=== PATIENT | male | born 1980 ===

== ENCOUNTER 2016-08-20 06:26 | Day surgery (SDC) | payer MEDICAID ==
[2016-08-15 10:23] VITALS: BMI 25.0
[2016-08-20] MEDS ORDERED: Lidocaine 2% Jelly (Uro-Jet) ONE (07:20)
[2016-08-20] MEDS: cefTRIAXone IV 1 gm in Dextros 50 ML IVPB ONE ×2 (07:26→08:10)
[2016-08-20] MEDS ORDERED: Lactated Ringer's 1,000 ML IV ONE ×3 (07:26→08:34)
[2016-08-20] MEDS ORDERED: Midazolam 2 MG/2 ML VIAL ONE (07:53)
[2016-08-20] MEDS ORDERED: Propofol 10 mg/ml Inj (20 ML) ONE (07:53)
[2016-08-20] MEDS ORDERED: Lidocaine Hydrochloride 5 ML INJ ONE (07:54)
[2016-08-20] MEDS ORDERED: Sodium Chloride 0.9% 500 ML IV ONE (08:05)
[2016-08-20] MEDS ORDERED: Lactated Ringer's 500 ML IV ONE (08:05)
[2016-08-20] MEDS: Iohexol 240 (50 ml) ONE ×2 (08:12→08:17)
[2016-08-20] MEDS ORDERED: ePHEDrine 50 mg/ml Inj ONE (08:29)
[2016-08-20] MEDS ORDERED: HYDROmorphone 0.5 mg/0.5 ml ISec IVP PRN (08:47)
--- NOTE | 2016-08-20 09:30 | PCM.SURG1 ---
Surgeon's Initial Post Op Note - Surgeon's Notes Surgeon: Omega BRIGHT Regional Safety Manager: NONE Type of Anesthesia: General LMA Pre-Operative Diagnosis: BILAT HYDRONEPHROSIS Operative Findings: SAME Post-Operative Diagnosis: SAME Operation Performed: URETHRAL DILATION. CYSTO, CYSTOGRAM. SINUSOGRAM. BILAT STENT REMOVAL. BILAT RTG PYELOGRAM,. BILAT STENT INSERTION Specimen/Specimens Removed: URINE Estimated Blood Loss: EBL {In ML}: 0 Blood Products Given: N/A Post-Op Condition: Good Date of Surgery/Procedure: 08/20/16 Time of Surgery/Procedure: 09:00
--- NOTE | 2016-08-20 10:30 | RAD ---
HISTORY: Hydronephrosis. Two AP supine views of the abdomen performed COMPARISON: Comparison made prior plain film radiographs abdomen 07/11/2015. FINDINGS: BOWEL: Normal. No obstruction. No free air. BONES: Normal. OTHER FINDINGS: There are bilateral in situ ureteral stents. . . There appears to be calcifications of surrounding the pigtail component of the proximal left ureteral stent likely representing nephrolithiasis. Questionable calcification adjacent and superior to the proximal pigtail component right renal stent. Metallic springlike density seen overlying the lateral aspect right upper abdomen Film labeled 2. Reveals a partial opacification left renal pelvis and a opacification right renal pelvis and collecting system. There may also be some opacification proximal left ureter. Partial opacification urinary bladder. Apparent in situ Black balloon IMPRESSION: In situ bilateral renal stents. Probable nephrolithiasis. Followup CT scan could be performed further evaluation
[2016-08-20 11:13] VITALS: BP 121/80; PULSE 69; RESP 18; TEMP 97.1; O2SAT 99
--- NOTE | 2016-08-21 09:10 | OP ---
PROCEDURE DATE: 08/20/2016 PREOPERATIVE DIAGNOSES: Hydronephrosis. History of renal tuberculosis. POSTOPERATIVE DIAGNOSES: Hydronephrosis. History of renal tuberculosis. PROCEDURES: Cystoscopy. Bilateral stent removal. Bilateral retrograde pyelogram. Bilateral stent insertion. Cystogram. Sinogram. The procedure was performed under video endoscopic control as well as under fluoroscopic control. DESCRIPTION OF PROCEDURE: The patient was placed in lithotomy position. The patient received periop erative antibiotics. Anesthesia was provided by the anesthesiologist. A 22-Mexican cystoscope sheath was introduced under direct vision. Urethra, prostate and bladder were inspected. There was noted to be a urethral stricture, mild urethral stricture of the bulbous urethra. This was dilated by passage of the cystoscope sheath. The prostate was inspected. There was mild inflammation of the prostatic urethra. The prostatic ure thra was 2.5 cm in length and subocclusive. The bladder was inspected. There was no bladder tumor. There was no bladder stone. There was an ap parent extension of the mucosa of the cephalad aspect of the bladder adjacent to the dome. This area was inspected. Iodinated contrast dye was instilled in this area. This was a blind ending tract ap proximately 2 cm in length. Cystogram was performed. Iodinated contrast dye was instilled. Views of the bladder were obtained. The cystogram demonstrated normal bladder contour. Bilateral ureteral stents were identified. There was moderate bladder trabeculation. There was no s tone within the bladder. There was no tumor within the bladder. The right ureteral stent was grasped with rigid grasping forceps and delivered through the cystoscope sheath to the distal end of the sheath. A 0.038 inch guidewire was inserted into the ureteral stent . The stent was removed. An open-ended catheter was inserted over the guidewire. Iodinated contrast dye was instilled. The retrograde pyelogram demonstrated moderate to marked hydroureteronephrosis. The guidewire was reinserted. A new 6-Mexican multilength stent was inserted over the guidewire. Pro per stent position was confirmed with fluoroscopy and endoscopy. Attention was then turned towards the left side. The stent was grasped with rigid grasping forceps a nd delivered to the distal end of the cystoscope sheath. A 0.038 inch guidewire was inserted into the stent. The stent was removed. An open-ended catheter was inserted over this guidewire. Iodinated contrast dye was instilled. There was noted to be an atrophic kidney with an upper pole hydronephrotic segment. The guidewire was reinserted. At first, the guidewire could not be reintroduced into the hydronephro tic hannah. Multiple attempts were performed using various open-ended catheters as well as Berenstein catheters. The guidewire was able to be negotiated with use of a Berenstein catheter as well as with an angle t ip Glidewire. The guidewire was coiled into the upper pole hydronephrotic hannah. A 6-Mexican multi-length stent was inserted over the guidewire. Proper stent position was confirmed with fluoroscopy and endoscopy. T he guidewire was removed. The bladder was reinspected and confirmed the above findings. Cystoscope and sheath were removed. The 16-Mexican Black catheter was inserted. Bladder drainage was clear. Rectal examination revealed no abnormal pelvic mass, fixation or induration. Prostate was approximat zehra 15 grams in size. Prostate was supple and flat without fixation, induration, or nodularity. The patient tolerated the procedure without complication. Lucero Michael MD cc: [phone] TT: 08/21/2016 09:09:37 vt
--- NOTE | 2016-08-21 13:04 | RAD ---
PROCEDURE: Fluoroscopy up to 1 hr. HISTORY: HYDRONEPHROSIS COMPARISON: None TECHNIQUE: Standard protocol for this study/examination. FINDINGS: Submitted images from the current procedure: Greater than 10.0. IMPRESSION: Less than 1 hr fluoroscopic time utilized during performance of the procedure.
== END 2016-08-20 11:15 | disposition home or self-care (01) ==
LOC: C.SDS 06:26
PROVIDERS: ATTEND Urology
DX: N13.30 Unspecified hydronephrosis (principal)
CPT/HCPCS: 52005; 52332; 74020; 76000; 87086; 88104; J0696; J7040; J7120; Q9966

== ENCOUNTER 2018-04-07 05:49 | Day surgery (SDC) | payer MEDICAID, OTHER ==
[2016-08-15 10:23] VITALS: BMI 25.0
[2018-04-07] MEDS ORDERED: Gentamicin 80 mg in 0.9% NS 0 MG/0 ML BAG IVPB ONE (07:33)
[2018-04-07] MEDS ORDERED: Iohexol 240 (50 ml) ONE (07:33)
[2018-04-07] MEDS ORDERED: cefTRIAXone 1 gm 1 GM/100 ML BAG IVPB ONE (07:33)
[2018-04-07] MEDS ORDERED: Midazolam 2 MG/2 ML VIAL ONE (07:45)
[2018-04-07] MEDS ORDERED: Propofol 10 mg/ml Inj (20 ML) ONE (07:45)
[2018-04-07] MEDS ORDERED: ePHEDrine 50 mg/ml Inj ONE (08:19)
[2018-04-07] MEDS ORDERED: HYDROmorphone 0.5 mg/0.5 ml ISec IVP PRN (08:31)
--- NOTE | 2018-04-07 08:43 | PCM.SURG1 ---
Surgeon's Initial Post Op Note - Surgeon's Notes Surgeon: Omega Michael Technician Automatic: none Type of Anesthesia: General LMA Pre-Operative Diagnosis: Bilat hydronephrosis. Hx of TB. Urethral stricture Operative Findings: same Post-Operative Diagnosis: same Operation Performed: cysto. urethral dilation. Bilat stent removal, RTG pyelogram, stent insertion. EUA Specimen/Specimens Removed: urine Estimated Blood Loss: EBL {In ML}: 0 Blood Products Given: N/A Date of Surgery/Procedure: 04/07/18 Time of Surgery/Procedure: 08:30
[2018-04-07 09:02] VITALS: O2SAT 100
[2018-04-07 09:52] LABS: SQUAMOUS EPITHIAL < 1 /hpf (0-5); URINE BACTERIA RARE (<OCC); URINE BILIRUBIN NEGATIVE (NEGATIVE); URINE BLOOD 2+ (NEGATIVE); URINE CLARITY Clear (Clear); URINE COLOR Colorless (YELLOW); URINE GLUCOSE (UA) NORMAL (Normal); URINE LEUKOCYTE ESTERASE TRACE Leu/uL (Negative); URINE PROTEIN NEGATIVE (NEGATIVE); URINE UROBILINOGEN NORMAL mg/dL (0.2-1.0)
[2018-04-07 10:03] VITALS: BP 127/86; PULSE 67; RESP 18; TEMP 97
--- NOTE | 2018-04-07 13:56 | RAD ---
Date of service: 04/07/2018 HISTORY: MEREDITH URETERAL STENT EXCHANGE COMPARISON: Abdominal radiograph performed 08/20/16 FINDINGS: Bilateral ureteral stents. Coarse calcifications/cluster of calcifications noted within the right upper quadrant measuring approximately 9 x 16 mm in span, left upper quadrant spanning approximately 1.9 x 1.7 cm, as well as additional focus of calcification likely residing within the left lower pole kidney measuring approximately 7 mm. Nonobstructive bowel gas pattern. Mild constipation. No acute osseous abnormality is detected. IMPRESSION: Bilateral ureteral stents. Evidence of probable bilateral nephrolithiasis. Correlation with CT suggested.
--- NOTE | 2018-04-07 15:45 | RAD ---
Date of service: 04/07/2018 PROCEDURE: Intraoperative Fluoroscopy. HISTORY: MEREDITH URETERAL STENT EXCHANGE FINDINGS: Fluoroscopic assistance was provided for bilateral retrograde and stent exchange. Please refer to the operative report from Dr. BRIGHT GREENLEAF. Total fluoroscopic time (continuous mode) utilized during the procedure 28.4 seconds. Dose report: DLP 1.89 (mGy/m2)
--- NOTE | 2018-04-10 03:53 | OP ---
PROCEDURE DATE: 04/07/2018 PREOPERATIVE DIAGNOSES: Bilateral hydronephrosis. Urethral stricture. History of renal tuberculosis. POSTOPERATIVE DIAGNOSES: Bilateral hydronephrosis. Urethral stricture. History of renal tuberculosis. Atrophic left kidney. Right hydronephrosis. Benign prostatic hyperplasia. PROCEDURES: Cystoscopy. Bilateral ureteral stent removal. Bilateral retrograde pyelogram. Bilateral stent insertion. Urethral dilation. Black catheter insertion. Exam under anesthesia. PROCEDURE FOLLOWS: The patient was placed in lithotomy position. The genitalia prepped and draped sterilely. Perioperative antibiotics were administered. A 22-Argentine cystoscope sheath was introduced under direct vision. There was a mild stricture of the bulbous urethra. The stricture was dilated by passage of cystoscope sheath. The bladder and prostate were inspected. FINDINGS: There was no bladder tumor. There was encrusted ureteral stents bilaterally. There was mild inflammation of bladder mucosa. The ureteral orifices were identified bilaterally and were noted to be somewhat dilated. The prostatic urethra was occlusive secondary to lateral lobe hypertrophy. The right ureteral stent was grasped with rigid grasping forceps and delivered through the cystoscope sheath. The 0.35-inch guidewire was inserted into the right ureteral stent and passed up to level of the kidney. An open-ended catheter inserted over the guidewire. Retrograde ureteropyelogram was performed. There was moderate to marked hydroureteronephrosis. The pullout ureterogram demonstrated dilated ureter at least to the level of the mid ureter to which point the ureteral catheter was withdrawn. The rest of the guidewire was reinserted up to level of the kidney. A 6-Argentine multilength stent was inserted over the guidewire. Proper stent position within the right kidney was confirmed with fluoroscopy and endoscopy. Position was confirmed within the bladder as well. Attention was then turned toward the left ureteral stent. The stent was grasped with rigid grasping forceps and delivered through the cystoscope sheath to the distal end of the cystoscope sheath. A 0.35-inch guidewire was inserted into ureteral stent and passed up to level of kidney. An open-end catheter inserted over the guidewire. Retrograde ureteropyelogram was performed. There was noted to be atrophic kidney. There was dilation of upper to mid hannah. There was a small renal pelvis. The guidewire was inserted back into ureteral stent and passed into the level of kidney. However, the guidewire at first could not be inserted into the dilated hannah. Using the Davida angled-tipped catheter over the guidewire, the guidewire was able to be inserted and curled within the dilated hannah. The Davida catheter was removed. A 6-Argentine multilength stent was inserted over the guidewire. Proper stent position was confirmed with fluoroscopy and endoscopy both within the kidney and bladder respectively. Bladder was reinspected and confirmed the above findings. The cystoscope sheath was removed. Black catheter was inserted. Bladder drainage was clear. Exam under anesthesia was performed. There was no abnormal pelvic mass fixation or induration. The prostate was supple and smooth, approximately 25 g size. The patient tolerated procedure without complication. Lucero Michael MD
== END 2018-04-07 10:56 | disposition home or self-care (01) ==
LOC: C.SDS 05:49
PROVIDERS: ATTEND Urology
DX: N13.30 Unspecified hydronephrosis (principal); N26.1 Atrophy of kidney (terminal); N40.0 Benign prostatic hyperplasia without lower urinary tract symptoms; N35.919 Unspecified urethral stricture, male, unspecified site
CPT/HCPCS: 52332; 74018; 81001; 87086; J0696